=== PATIENT | male | born 1945 | race African-American/Black ===

== ENCOUNTER → 2024-12-23 | Day surgery (SDC) | payer OTHER, MEDICAID ==
[~2024-12-23] VITALS: Ht 172.7 cm; Wt 86.2 kg
[~2024-12-23] MED LIST: ALBU18HF2 IH; ALLO300T2 PO; AMLO10TA80 PO; BENA40TA91 PO; BUPIVACAINE HCL/PF 0.5% (5MG/ML) 10ML ONE; CETI10TA6 PO; CHOL200059 PO; COLC0.6C3 PO; FINA5TAB11 PO; FLUT15.844 BOTHNSTRLS; LABETALOL 5MG/ML 4ML INJ IV PRN; LACTATED RINGERS 1,000 ML IV SCH; MEPERIDINE HCL/PF 25MG/ML CPJ IV PRN; NAPR-1495 PO; ONDANSETRON HCL 4MG/2ML INJ IV PRN; SKIN ADHESIVE 0.7 GM EA TOP ONE; TAMS-54 PO
[2024-12-23 11:48] VITALS: BP 115/63; PULSE 66; RESP 16
[2024-12-23] MEDS: HYDROMORPHONE HCL/PF 1MG/ML INJ IV PRN (11:48)
== END | disposition home or self-care (01) ==
LOC: OR 06:16
PROVIDERS: ATTEND Surgery
DX: K40.90 Unilateral inguinal hernia, without obstruction or gangrene, not specified as recurrent (principal); I10 Essential (primary) hypertension; Z79.82 Long term (current) use of aspirin; Z79.899 Other long term (current) drug therapy; Z98.890 Other specified postprocedural states
CPT/HCPCS: 49525; C1781; J0665; J1171; A4606